=== PATIENT | male | born 1950 | race Two or more races ===

== ENCOUNTER 2020-02-11 06:42 | Day surgery (SDC) | payer OTHER | END 2020-02-11 13:30 | disposition home or self-care (01) | LOC: AMB-ENDOS 06:42 → ADM 08:00 → AMB-ENDOS 13:30 | PROVIDERS: ATTEND Surgery | DX: D12.3 Benign neoplasm of transverse colon (principal); D12.5 Benign neoplasm of sigmoid colon ==

== ENCOUNTER 2021-05-04 06:37 | Day surgery (SDC) | payer OTHER | END 2021-05-04 10:45 | disposition home or self-care (01) | LOC: AMB-ENDOS 06:37 | PROVIDERS: ATTEND Surgery | DX: D12.0 Benign neoplasm of cecum (principal); D12.2 Benign neoplasm of ascending colon; D12.3 Benign neoplasm of transverse colon; Z20.822 Contact with and (suspected) exposure to COVID-19 ==

== ENCOUNTER 2025-01-28 11:36 | Inpatient (IN) | payer OTHER ==
[~2025-01-28] VITALS: Ht 180.3 cm; Wt 101.6 kg
[2025-01-28] MEDS ORDERED: TOPROL XL25 M1 (12:06)
[2025-01-28] MEDS ORDERED: LOTREL 10-20 M1 EACH (12:06)
[2025-01-28] MEDS ORDERED: METFORMIN HCL1000 M2 (12:08)
[2025-01-28] MEDS ORDERED: XARELTO20 MG (12:09)
[2025-01-28] MEDS ORDERED: TAMS0.4C PO (12:09)
[2025-01-28] MEDS ORDERED: LANTUS SOL100 UNIT/1 (12:10)
[2025-01-28] MEDS ORDERED: DILTIAZEM ER60 MG (12:11)
[2025-01-28 12:16] VITALS: BP 130/84
[2025-01-28 13:25] LABS: RH POSITIVE
[2025-02-05 07:07] LABS: INR 1.12; PARTIAL THROMBOPLASTIN TIME 25.9 SECONDS (22.0-34.0); PROTHROMBIN TIME 12.1 SECONDS (9.0-11.5)
[2025-02-05] MEDS ORDERED: levoFLOXacin IN DEXTROSE 5 % 5 MG/ML PIGGYBAG IV ONE (13:32)
[2025-02-05] MEDS ORDERED: METRONIDAZOLE/SODIUM CHLORIDE 500 MG/100 ML PIGGYBACK IV ONE (13:32)
[2025-02-05] MEDS ORDERED: BUPIVACAINE HCL/Mpf 0.5% 10ML VIAL ONE (13:32)
[2025-02-05] MEDS ORDERED: LIDOCAINE HCL 1%/EPINEPHRINE 20ML VIAL IJ ONE (13:32)
[2025-02-05] MEDS ORDERED: MORPHINE SULFATE 4 MG/ML CARTRIDGE IV PRN (14:30)
[2025-02-05] MEDS ORDERED: DEXTROSE 50 % IN WATER 0.5 G/ML VIAL IV PRN ×2 (14:30→16:00)
[2025-02-05] MEDS ORDERED: ONDANSETRON HCL 2 MG/ML VIAL IV PRN (14:30)
[2025-02-05] MEDS ORDERED: RINGERS SOLUTION,LACTATED 1,000 ML IV SCH (14:30)
[2025-02-05] MEDS ORDERED: OxyCODONE HCL 5 MG TABLET (ROXICODONE) PO PRN (14:30)
[2025-02-05] MEDS ORDERED: INSULIN LISPRO 1,000 UNIT/10 ML UNITS SUBCUTANEO PRN (16:00)
[2025-02-05] MEDS ORDERED: ENALAPRILAT DIHYDRATE 1.25 MG/ML VIAL IV PRN (16:00)
[2025-02-05] MEDS ORDERED: POLYETHYLENE GLYCOL 3350 17 GM BLIST.PACK PO SCH (17:00)
[2025-02-05] MEDS ORDERED: GABAPENTIN 300 MG CAPSULE PO SCH (17:00)
[2025-02-05 18:13] LABS: BASO % 0.3 % (0.1-1.2); EOS # 0.04 (0.04-0.54); EOS % 0.3 % (0.7-7.0); HEMATOCRIT 47.8 % (40.1-51.0); HEMOGLOBIN 16.3 g/dL (13.7-17.5); LYMPH # 1.36 (1.18-3.74); LYMPH % 8.9 % (19.3-53.1); MEAN CORPUSCULAR HEMOGLOBIN 30.3 pg (25.6-32.2); MONO # 0.52 (0.24-0.82); MONO % 3.4 % (4.7-12.5); NEUT # 13.26 (1.56-6.13); NEUT % 86.8 % (34.0-71.1); PLATELET COUNT 192 K/uL (163-369); RED BLOOD COUNT 5.38 M/uL (4.63-6.08); RED CELL DISTRIBUTION WIDTH 14.6 % (11.6-14.4)
[2025-02-05 18:29] LABS: ALBUMIN 3.5 gm/dL (3.4-5.0); CALCIUM 8.8 mg/dL (8.5-10.1); CREATININE SERUM 1.12 mg/dL (0.70-1.30); GFR 64.26; MAGNESIUM 1.6 mg/dL (1.8-2.4); PHOSPHOROUS 2.8 mg/dL (2.5-4.9); POTASSIUM 4.14 mEq/L (3.5-5.1)
[2025-02-05] MEDS ORDERED: MORPHINE SULFATE 4 MG/ML VIAL IV ONE (19:00)
[2025-02-05] MEDS ORDERED: ACETAMINOPHEN 500 MG GEL..CAP PO SCH (20:00)
[2025-02-05] MEDS ORDERED: DILTIAZEM HCL 60 MG TABLET PO SCH (21:00)
[2025-02-05] MEDS ORDERED: FAMOTIDINE/PF 20 MG/2 ML VIAL IV PUSH SCH (21:00)
[2025-02-05] MEDS ORDERED: TAMSULOSIN HCL 0.4 MG CAP PO SCH (21:00)
[2025-02-05 21:52] VITALS: O2SAT 95
[2025-02-06] VITALS (9 sets, daily range): BP systolic 143–148; BP diastolic 76–91; O2SAT 90–97
[2025-02-06 07:31] LABS: BASO % 0.1 % (0.1-1.2); HEMATOCRIT 50.3 % (40.1-51.0); HEMOGLOBIN 17.2 g/dL (13.7-17.5); LYMPH # 1.38 (1.18-3.74); LYMPH % 10.8 % (19.3-53.1); MEAN CORPUSCULAR HEMOGLOBIN 30.2 pg (25.6-32.2); MONO # 0.58 (0.24-0.82); MONO % 4.5 % (4.7-12.5); NEUT # 10.82 (1.56-6.13); NEUT % 84.4 % (34.0-71.1); PLATELET COUNT 186 K/uL (163-369); RED BLOOD COUNT 5.69 M/uL (4.63-6.08); RED CELL DISTRIBUTION WIDTH 14.6 % (11.6-14.4)
[2025-02-06 08:17] LABS: ALBUMIN 3.3 gm/dL (3.4-5.0); CALCIUM 8.7 mg/dL (8.5-10.1); CREATININE SERUM 1.04 mg/dL (0.70-1.30); MAGNESIUM 1.7 mg/dL (1.8-2.4); PHOSPHOROUS 2.7 mg/dL (2.5-4.9); POTASSIUM 3.85 mEq/L (3.5-5.1)
[2025-02-06] MEDS ORDERED: AMLODIPINE BESYLATE 10 MG TABLET PO SCH (09:00)
[2025-02-06] MEDS ORDERED: METOPROLOL SUCCINATE 25 MG TAB.SR.24H PO SCH (09:00)
[2025-02-06] MEDS ORDERED: ENOXAPARIN SODIUM 40 MG/0.4 ML SYRINGE SUBCUTANEO SCH (17:00)
[2025-02-07] VITALS: O2SAT 93
[2025-02-07 01:40] VITALS: BP 89/45; O2SAT 92
[2025-02-07 05:42] VITALS: O2SAT 94
[2025-02-07 08:09] VITALS: O2SAT 96
[2025-02-07 08:55] VITALS: BP 131/86; O2SAT 94
[2025-02-07] MEDS ORDERED: ENOXAPARIN SODIUM 40 MG/0.4 ML SYRINGE SUBCUTANEO SCH (09:00)
[2025-02-07 16:14] VITALS: BP 130/76; O2SAT 95
[2025-02-08 01:02] VITALS: BP 134/77; O2SAT 95
[2025-02-08 08:28] VITALS: BP 154/85; O2SAT 96
[2025-02-08] MEDS ORDERED: NEURONTIN300 MG PO (11:22)
[2025-02-08] MEDS ORDERED: TYLENOL ARTHRI650 MG PO (11:22)
[2025-02-08] MEDS ORDERED: INTESTINEX680 M1 PO (11:22)
== END 2025-02-08 12:46 | disposition home or self-care (01) | DRG 330 ==
LOC: O/R 02-05 06:27 → SURG 02-05 12:15
PROVIDERS: ADMIT Surgery; ATTEND Surgery
PROC: 07BB4ZZ Excision of Mesenteric Lymphatic, Percutaneous Endoscopic Approach (ICD-10-PCS; 2025-02-05)
PROC: 0DBU4ZZ Excision of Omentum, Percutaneous Endoscopic Approach (ICD-10-PCS; 2025-02-05)
PROC: 4A12X4Z Monitoring of Cardiac Electrical Activity, External Approach (ICD-10-PCS; 2025-02-05)
PROC: 0DTG4ZZ Resection of Left Large Intestine, Percutaneous Endoscopic Approach (ICD-10-PCS; principal; 2025-02-05 17:30)
DX: C18.4 Malignant neoplasm of transverse colon (principal); K92.1 Melena; K59.09 Other constipation; R59.0 Localized enlarged lymph nodes; I10 Essential (primary) hypertension; E11.9 Type 2 diabetes mellitus without complications; Z79.4 Long term (current) use of insulin